=== PATIENT | female | born 1980 | race African-American/Black ===

== ENCOUNTER 2017-04-17 16:57 | Emergency (ER) | payer MEDICAID ==
[~2017-04-17] VITALS: Ht 165.1 cm; Wt 93.2 kg
[~2017-04-17 16:57] MED LIST: ALLERGY RELF10 M3 PO; AMOXICILLIN875 MG PO; AUGMENTIN500TAB PO; CETIRIZ/PSE1 TAB PO; CIPROFLOXACN250 MG PO; CORTISPORIN OP7.5 ML OP; DEPO-PROVER150 MG/M1 IM; FLEXERIL PO; FLONASE NASAL50 MCG; KEFLEX250 MG PO; KEFLEX500 M1 PO; LORTAB 1010 MG PO; LORTAB 7.57.5 MG PO; METRONIDAZOL500 MG PO; NO HOME MEDS; PYRIDIUM200 MG PO; SERTRALINE50 MG PO; SINGLAIR 4 MG TA4 MG PO; SINGULAIR; TIZANIDINE4 MG PO; ULTRAM50 M1 PO; ZYRTEC10 MG PO
[2017-04-17 19:13] LABS: HEMATOCRIT 42.8 % (37.0-47.0); HEMOGLOBIN 14.5 g/dl (12.0-16.0); IMMATURE GRANULOCYTES 0.3 % (0.0-1.0); MEAN CELL VOLUME 90.3 fL CALC (80.0-100.0); MEAN CORPUSCULAR HGB 30.6 pG CALC (26.0-32.0); MEAN CORPUSCULAR HGB CONC 33.9 g/L CALC (32.0-36.0); NEUT# 10.48 thou/uL (2.00-7.15); RED BLOOD COUNT 4.74 mill/uL (4.20-5.60); RED CELL DISTRI WIDTH 12.8 % (11.5-15.5)
[2017-04-17 19:17] LABS: URINE BILIRUBIN - DIPSTICK NEGATIVE (NEGATIVE); URINE BLOOD DIPSTICK NEGATIVE (NEGATIVE); URINE CLARITY CLEAR; URINE COLOR YELLOW; URINE GLUCOSE - DIPSTICK NEGATIVE (NEGATIVE); URINE KETONE 40 mg/dL (NEGATIVE); URINE LEUK ESTERASE NEGATIVE (NEGATIVE); URINE NITRITE - DIPSTICK NEGATIVE (Negative); URINE PH 5.5 (4.5-8.0); URINE PROTEIN - DIPSTICK NEGATIVE (NEG-TRACE); URINE SPECIFIC GRAVITY >=1.030; URINE UROBILINOGEN - DIPSTICK 0.2 E.U./dL (0.2)
[2017-04-17 20:03] LABS: ALBUMIN 4.2 g/dL (3.2-5.0); ALKALINE PHOSPHATASE 72 u/l (38-126); AMYLASE 64 u/l (30-110); ANION GAP 16 (6-22 (CALC)); BILIRUBIN, TOTAL 0.9 mg/dL (0.0-1.4); BUN 12 mg/dL (7-17); BUN/CREATININE RATIO 20 (12-20 (CALC)); CALCIUM 9.2 mg/dL (8.4-10.2); CARBON DIOXIDE 23 mmol/l (22-30); CHLORIDE 110 mmol/l (95-108); CREATININE 0.6 mg/dL (0.5-1.0); GFR > 60 ML/MIN (>=60 (CALC)); GFR FOR AFR.AMER. > 60 ML/MIN (>=60 (CALC)); GLUCOSE 104 mg/dL (65-105); LIPASE 59 u/l (23-300); POTASSIUM 3.9 mmol/l (3.5-5.1); SGOT/AST 37 u/l (14-36); SGPT/ALT 39 u/l (9-52); SODIUM 145 mmol/l (137-146); TOTAL PROTEIN 7.7 g/dL (6.3-8.2)
[2017-04-17 23:31] LABS: HEMATOCRIT 37.6 % (37.0-47.0); HEMOGLOBIN 12.5 g/dl (12.0-16.0); IMMATURE GRANULOCYTES 0.2 % (0.0-1.0); MEAN CORPUSCULAR HGB 29.9 pG CALC (26.0-32.0); MEAN CORPUSCULAR HGB CONC 33.2 g/L CALC (32.0-36.0); NEUT# 7.08 thou/uL (2.00-7.15); RED BLOOD COUNT 4.18 mill/uL (4.20-5.60); RED CELL DISTRI WIDTH 12.9 % (11.5-15.5)
[2017-04-17 23:49] LABS: ALBUMIN 3.4 g/dL (3.2-5.0); ALKALINE PHOSPHATASE 60 u/l (38-126); ANION GAP 12 (6-22 (CALC)); BILIRUBIN, TOTAL 0.7 mg/dL (0.0-1.4); BUN 10 mg/dL (7-17); BUN/CREATININE RATIO 17 (12-20 (CALC)); CALCIUM 8.2 mg/dL (8.4-10.2); CARBON DIOXIDE 20 mmol/l (22-30); CHLORIDE 114 mmol/l (95-108); CREATININE 0.6 mg/dL (0.5-1.0); GFR > 60 ML/MIN (>=60 (CALC)); GFR FOR AFR.AMER. > 60 ML/MIN (>=60 (CALC)); GLUCOSE 99 mg/dL (65-105); POTASSIUM 3.7 mmol/l (3.5-5.1); SGOT/AST 23 u/l (14-36); SGPT/ALT 32 u/l (9-52); SODIUM 142 mmol/l (137-146); TOTAL PROTEIN 6.1 g/dL (6.3-8.2)
[2017-04-18] MEDS ORDERED: Levaquin PO (00:33)
[2017-04-18] MEDS ORDERED: ZOFRAN4 MG/TAB PO (00:42)
[2017-04-18 01:22] VITALS: BP 100/58
== END 2017-04-18 00:50 | disposition home or self-care (01) | DRG 392 ==
LOC: ED 16:57
PROVIDERS: Emergency Medicine
DX: R11.2 Nausea with vomiting, unspecified (principal); R50.9 Fever, unspecified; R19.7 Diarrhea, unspecified; R10.12 Left upper quadrant pain; R10.11 Right upper quadrant pain
CPT/HCPCS: S0164

== ENCOUNTER 2018-02-05 16:36 | Observation (INO) | payer MEDICAID ==
[~2018-02-05] VITALS: Ht 165.1 cm; Wt 88.0 kg
[~2018-02-05 16:36] MED LIST changes: +Levaquin PO; +ZOFRAN4 MG/TAB PO
[2018-02-05] MEDS ORDERED: DEPO-PROVER150 MG/ML IM (16:52)
[2018-02-05 17:35] LABS: HEMOGLOBIN 13.3 g/dl (12.0-16.0); IMMATURE GRANULOCYTES 0.2 % (0.0-5.0); MEAN CELL VOLUME 89.9 fL CALC (80.0-100.0); MEAN CORPUSCULAR HGB 29.9 pG CALC (26.0-32.0); MEAN CORPUSCULAR HGB CONC 33.3 g/L CALC (32.0-36.0); NEUT# 6.99 thou/uL (2.00-7.15); RED BLOOD COUNT 4.45 mill/uL (4.20-5.60); RED CELL DISTRI WIDTH 12.9 % (11.5-15.5)
[2018-02-05 17:37] LABS: URINE BILIRUBIN - DIPSTICK NEGATIVE (NEGATIVE); URINE BLOOD DIPSTICK NEGATIVE (NEGATIVE); URINE CLARITY CLEAR; URINE COLOR YELLOW; URINE GLUCOSE - DIPSTICK NEGATIVE (NEGATIVE); URINE KETONE NEGATIVE (NEGATIVE); URINE LEUK ESTERASE NEGATIVE (NEGATIVE); URINE NITRITE - DIPSTICK NEGATIVE (Negative); URINE PROTEIN - DIPSTICK TRACE mg/dL (NEG-TRACE); URINE SPECIFIC GRAVITY >=1.030; URINE UROBILINOGEN - DIPSTICK 0.2 E.U./dL (0.2)
[2018-02-05 17:51] LABS: ALBUMIN 3.8 g/dL (3.2-5.0); ALKALINE PHOSPHATASE 69 u/l (38-126); BILIRUBIN, TOTAL 0.5 mg/dL (0.0-1.4); BUN 7 mg/dL (7-17); BUN/CREATININE RATIO 10 (12-20 (CALC)); CHLORIDE 110 mmol/l (95-108); CREATININE 0.7 mg/dL (0.5-1.0); GFR > 60 ML/MIN (>=60 (CALC)); GFR FOR AFR.AMER. > 60 ML/MIN (>=60 (CALC)); LIPASE 68 u/l (23-300); POTASSIUM 3.3 mmol/l (3.5-5.1); SGOT/AST 31 u/l (14-36); SGPT/ALT 42 u/l (9-52); SODIUM 145 mmol/l (137-146); TOTAL PROTEIN 6.9 g/dL (6.3-8.2)
[2018-02-05 18:10] LABS: ANION GAP 11 (6-22 (CALC)); CARBON DIOXIDE 27 mmol/l (22-30)
[2018-02-06 01:07] LABS: C. DIFFICILE TOXIN A&B NEGATIVE (NEGATIVE)
[2018-02-06 02:30] VITALS: BP 112/55
[2018-02-06 08:41] VITALS: BP 131/68
[2018-02-06 15:54] VITALS: BP 134/69
[2018-02-06 20:30] VITALS: BP 102/66
[2018-02-07 04:54] VITALS: BP 117/74
[2018-02-07 08:48] VITALS: BP 121/66
[2018-02-07] MEDS ORDERED: METRONIDAZOL500 MG PO (15:39)
[2018-02-07 16:02] VITALS: BP 132/86
== END 2018-02-07 17:34 | disposition home or self-care (01) ==
LOC: ED 16:36 → ED-I 02-06 01:00 → ED 02-06 01:50 → MS2 02-06 01:51 → UNDODEPER 02-06 02:25 → MS2 02-07 17:34
PROVIDERS: Emergency Medicine; Family Medicine; ADMIT General Practice; ATTEND General Practice
DX: A04.72 Enterocolitis due to Clostridium difficile, not specified as recurrent (principal); E87.6 Hypokalemia
CPT/HCPCS: G0378

== ENCOUNTER 2018-11-13 08:56 | Emergency (ER) | payer MEDICAID ==
[~2018-11-13] VITALS: Ht 165.1 cm; Wt 90.0 kg
[~2018-11-13 08:56] MED LIST changes: +DEPO-PROVER150 MG/ML IM
[2018-11-13] MEDS ORDERED: DOXYCYC MONO100 M2 PO (09:29)
[2018-11-13 09:33] VITALS: BP 149/89
== END 2018-11-13 09:37 | disposition home or self-care (01) ==
LOC: ED 08:56
DX: J32.9 Chronic sinusitis, unspecified (principal); R05 Cough; R09.89 Other specified symptoms and signs involving the circulatory and respiratory systems; R04.0 Epistaxis

== ENCOUNTER 2019-06-07 08:50 | Emergency (ER) | payer MEDICAID ==
[~2019-06-07] VITALS: Ht 165.1 cm; Wt 100.0 kg
[~2019-06-07 08:50] MED LIST changes: +DOXYCYC MONO100 M2 PO
[2019-06-07] MEDS ORDERED: TAM75CAP PO (09:22)
[2019-06-07 09:25] VITALS: BP 132/70
== END 2019-06-07 09:31 | disposition home or self-care (01) ==
LOC: ED 08:50
DX: J11.1 Influenza due to unidentified influenza virus with other respiratory manifestations (principal)

== ENCOUNTER 2021-12-22 10:50 | Emergency (ER) | payer MEDICAID ==
[~2021-12-22] VITALS: Ht 167.6 cm; Wt 98.1 kg
[~2021-12-22 10:50] MED LIST changes: +TAM75CAP PO
[2021-12-22 10:56] VITALS: BP 131/91
[2021-12-22 12:00] VITALS: BP 131/91
[2021-12-22 12:03] LABS: HEMOGLOBIN 13.9 g/dl (12.0-16.0); MEAN CELL VOLUME 88.2 fL CALC (80.0-100.0); MEAN CORPUSCULAR HGB 29.2 pG CALC (26.0-32.0); MEAN CORPUSCULAR HGB CONC 33.1 g/dL CAL (32.0-36.0); NEUT# 3.32 thou/uL (2.00-7.15); RED BLOOD COUNT 4.76 mill/uL (4.20-5.60); RED CELL DISTRI WIDTH 12.8 % (11.5-15.5)
[2021-12-22 12:03] LABS: URINE BILIRUBIN - DIPSTICK NEGATIVE (NEGATIVE); URINE BLOOD DIPSTICK NEGATIVE (NEGATIVE); URINE COLOR YELLOW; URINE GLUCOSE - DIPSTICK NEGATIVE (NEGATIVE); URINE KETONE NEGATIVE (NEGATIVE); URINE LEUK ESTERASE NEGATIVE (NEGATIVE); URINE PH 5.5 (4.5-8.0); URINE PROTEIN - DIPSTICK NEGATIVE (NEG-TRACE); URINE SPECIFIC GRAVITY >=1.030; URINE UROBILINOGEN - DIPSTICK 0.2 E.U./dL (0.2)
[2021-12-22 12:04] LABS: URINE NITRITE - DIPSTICK NEGATIVE (Negative)
[2021-12-22 12:19] LABS: ALKALINE PHOSPHATASE 67 u/l (38-126); ANION GAP 10 (6-22 (CALC)); BILIRUBIN, TOTAL 0.3 mg/dL (0.0-1.4); BUN 9 mg/dL (7-17); BUN/CREATININE RATIO 13 (12-20 (CALC)); CARBON DIOXIDE 24 mmol/l (22-30); CHLORIDE 109 mmol/l (95-108); CREATININE 0.7 mg/dL (0.5-1.0); GFR FOR AFR.AMER. > 60 ML/MIN (>=60 (CALC)); GFR OTHER RACES > 60 ML/MIN (>=60 (CALC)); LIPASE 95 u/l (23-300); POTASSIUM 3.9 mmol/l (3.5-5.1); SGOT/AST 22 u/l (14-36); SODIUM 139 mmol/l (137-146); TOTAL PROTEIN 7.3 g/dL (6.3-8.2)
[2021-12-22 12:30] VITALS: BP 143/111
[2021-12-22 13:00] VITALS: BP 120/78
[2021-12-22 15:05] VITALS: BP 120/78
== END 2021-12-22 15:05 | disposition home or self-care (01) ==
LOC: ED 10:50
PROVIDERS: Internal Medicine
DX: R10.9 Unspecified abdominal pain (principal)
CPT/HCPCS: Q9967

== ENCOUNTER 2023-03-04 09:43 | Emergency (ER) | payer MEDICAID ==
[~2023-03-04] VITALS: Ht 167.6 cm; Wt 98.8 kg
[2023-03-04 09:53] VITALS: BP 128/88
[2023-03-04 10:00] VITALS: BP 135/81
[2023-03-04 10:31] VITALS: BP 82/50
[2023-03-04 10:33] VITALS: BP 136/82
[2023-03-04 10:45] VITALS: BP 137/84
[2023-03-04 10:53] LABS: BASO% 0.5 % (0-3); EOS% 4.1 % (0-8); HEMATOCRIT 41.5 % (37.0-47.0); HEMOGLOBIN 13.7 g/dl (12.0-16.0); IMMATURE GRANULOCYTES 0.2 % (0.0-5.0); LYMPH% 28.3 % (15-41); MEAN CORPUSCULAR HGB 29.7 pG CALC (26.0-32.0); MONO% 6.1 % (2-13); NEUT# 3.6 thou/uL (2.00-7.15); NEUT% 60.8 % (42-76); RED BLOOD COUNT 4.61 mill/uL (4.20-5.60); RED CELL DISTRI WIDTH 12.5 % (11.5-15.5)
[2023-03-04 11:08] LABS: ALBUMIN 3.9 g/dL (3.2-5.0); ALKALINE PHOSPHATASE 61 u/l (38-126); ANION GAP 10 (6-22 (CALC)); BUN 8 mg/dL (7-17); BUN/CREATININE RATIO 15 (12-20 (CALC)); CARBON DIOXIDE 25 mmol/l (22-30); CHLORIDE 109 mmol/l (95-108); CREATININE 0.6 mg/dL (0.5-1.0); GFR FOR AFR.AMER. > 60 ML/MIN (>=60 (CALC)); GFR OTHER RACES > 60 ML/MIN (>=60 (CALC)); POTASSIUM 4.4 mmol/l (3.5-5.1); SGOT/AST 33 u/l (14-36); SODIUM 139 mmol/l (137-146); TOTAL PROTEIN 7.1 g/dL (6.3-8.2)
[2023-03-04 11:13] LABS: BILIRUBIN, TOTAL 0.5 mg/dL (0.02-1.3)
[2023-03-04] MEDS ORDERED: MECLIZINE 2525 MG PO (12:30)
[2023-03-04 13:04] VITALS: BP 137/84
== END 2023-03-04 13:08 | disposition home or self-care (01) ==
LOC: ED 09:43
PROVIDERS: Family Medicine
DX: H81.10 Benign paroxysmal vertigo, unspecified ear (principal); Z20.822 Contact with and (suspected) exposure to COVID-19

== ENCOUNTER 2023-06-20 17:52 | Emergency (ER) | payer MEDICAID ==
[~2023-06-20] VITALS: Ht 167.6 cm; Wt 93.9 kg
[~2023-06-20 17:52] MED LIST changes: +MECLIZINE 2525 MG PO
[2023-06-20 19:38] VITALS: BP 123/90
[2023-06-20 19:46] LABS: URINE BILIRUBIN - DIPSTICK Negative (NEGATIVE); URINE BLOOD DIPSTICK Negative (NEGATIVE); URINE GLUCOSE - DIPSTICK Negative (NEGATIVE); URINE KETONE Trace mg/dL (NEGATIVE); URINE LEUK ESTERASE Negative (NEGATIVE); URINE NITRITE - DIPSTICK Negative (Negative); URINE PROTEIN - DIPSTICK Negative (NEG-TRACE); URINE SPECIFIC GRAVITY >=1.030; URINE UROBILINOGEN - DIPSTICK 0.2 E.U./dL (0.2)
[2023-06-20 19:47] LABS: BASO% 0.4 % (0-3); EOS% 2.9 % (0-8); HEMATOCRIT 42.7 % (37.0-47.0); HEMOGLOBIN 13.9 g/dl (12.0-16.0); IMMATURE GRANULOCYTES 0.1 % (0.0-5.0); LYMPH% 34.3 % (15-41); MEAN CELL VOLUME 89.3 fL CALC (80.0-100.0); MEAN CORPUSCULAR HGB 29.1 pG CALC (26.0-32.0); MEAN CORPUSCULAR HGB CONC 32.6 g/dL CAL (32.0-36.0); MONO% 6.7 % (2-13); NEUT# 4.2 thou/uL (2.00-7.15); NEUT% 55.6 % (42-76); RED BLOOD COUNT 4.78 mill/uL (4.20-5.60); RED CELL DISTRI WIDTH 12.5 % (11.5-15.5)
[2023-06-20 19:48] LABS: URINE COLOR Yellow
[2023-06-20 19:59] LABS: ALBUMIN 4.6 g/dL (3.2-5.0); ALKALINE PHOSPHATASE 83 u/l (38-126); ANION GAP 13 (6-22 (CALC)); BILIRUBIN, TOTAL 0.6 mg/dL (0.02-1.3); BUN 8 mg/dL (7-17); BUN/CREATININE RATIO 13 (12-20 (CALC)); CARBON DIOXIDE 27 mmol/l (22-30); CHLORIDE 106 mmol/l (95-108); CREATININE 0.6 mg/dL (0.5-1.0); GFR FOR AFR.AMER. > 60 ML/MIN (>=60 (CALC)); GFR OTHER RACES > 60 ML/MIN (>=60 (CALC)); LIPASE 96 u/l (23-300); POTASSIUM 3.9 mmol/l (3.5-5.1); SGOT/AST 33 u/l (14-36); SODIUM 141 mmol/l (137-146); TOTAL PROTEIN 8.2 g/dL (6.3-8.2)
[2023-06-20 20:00] VITALS: BP 143/96
[2023-06-20] MEDS ORDERED: DICYCLOMINE HYD10 MG PO (21:11)
[2023-06-20 21:48] VITALS: BP 143/96
== END 2023-06-20 21:56 | disposition home or self-care (01) ==
LOC: ED 17:52
PROVIDERS: Nurse Practitioner Family
DX: R10.9 Unspecified abdominal pain (principal)

== ENCOUNTER 2024-07-02 17:04 | Emergency (ER) | payer OTHER ==
[~2024-07-02] VITALS: Ht 167.6 cm; Wt 90.7 kg
[~2024-07-02 17:04] MED LIST changes: +DICYCLOMINE HYD10 MG PO
[2024-07-02 17:12] VITALS: BP 140/98
[2024-07-02 17:15] VITALS: BP 135/86
[2024-07-02 18:15] VITALS: BP 151/98
[2024-07-02 18:30] VITALS: BP 145/90
[2024-07-02] MEDS ORDERED: ACETAMINOPHEN 325 MG/TAB PO ONE ×2 (18:30)
[2024-07-02 18:45] VITALS: BP 157/93
[2024-07-02] MEDS ORDERED: AMOX/K CLAV875 M1 PO (19:03)
[2024-07-02 19:10] VITALS: BP 157/93
[2024-07-02] MEDS ORDERED: LEVOFLOXACIN750 MG PO (19:21)
[2024-07-02] MEDS ORDERED: LIDOcaine HCl 1% (Local Anesth.) 20 ML VIAL IM STA (19:26)
[2024-07-02] MEDS ORDERED: cefTRIAXone SODIUM 2 GM/VIAL SDV IM ONE (19:30)
== END 2024-07-02 19:10 | disposition home or self-care (01) ==
LOC: ED 17:04
DX: J32.9 Chronic sinusitis, unspecified (principal); Z20.822 Contact with and (suspected) exposure to COVID-19
CPT/HCPCS: J0696